=== PATIENT | female | born 1975 | race African-American/Black ===

== ENCOUNTER 2016-10-01 20:38 | Emergency (ER) | payer OTHER ==
[~2016-10-01 20:38] MED LIST: AMLODIPINE10 M1 PO; ATORVASTATIN CA40 M1 PO; BAYER ASPIRIN R81 MG PO; HYDROCHLOROTH12.5 M2 PO; HYDROCHLOROTHIAZIDE; PRILOSEC20 MG PO; PROZ10 PO; TOPAMAX100 MG PO
[2016-10-01 21:35] LABS: BASOPHIL % 0.3 % (0-2); PLATELET COUNT 288 x10^3mcL (130-400)
[2016-10-01 21:37] LABS: RED CELL DISTRIBUTION WIDTH 16.7 % (11.5-14.5)
[2016-10-01 21:49] LABS: ALKALINE PHOSPHATASE 129 U/L (46-116); ALT/SGPT 20 U/L (14-59); AST/SGOT 16 U/L (15-37); BILIRUBIN TOTAL 0.23 mg/dL (0.20-1.00); CALCIUM 8.7 mg/dL (8.5-10.1); CARBON DIOXIDE 28.7 mmol/L (21-32); CHLORIDE SERUM 105 mmol/L (98-107); CREATININE SERUM 0.9 mg/dL (0.6-1.0); GFR1 > 60 mL/min; GLUCOSE SERUM 128 mg/dL (74-106); SODIUM SERUM 141 mmol/L (136-145); TOTAL PROTEIN, SERUM 7.6 g/dL (6.4-8.2)
[2016-10-01 21:50] LABS: ALBUMIN 3.2 g/dL (3.4-5.0); CHOLESTEROL 124 mg/dL (<200)
[2016-10-01 23:40] VITALS: BP 127/93
== END 2016-10-01 23:40 | disposition short-term general hospital (02) ==
LOC: ED 20:38
PROVIDERS: Specialist
DX: R51 Headache (principal); E66.9 Obesity, unspecified; I10 Essential (primary) hypertension; E78.00 Pure hypercholesterolemia, unspecified
CPT/HCPCS: 83880; G0480; J2060; J2405; J3010; Q0092